=== PATIENT | male | born 1955 | race Caucasian/White ===

== ENCOUNTER 2016-09-23 19:17 | Emergency (ER) | payer BC ==
[~2016-09-23] VITALS: Ht 177.8 cm; Wt 88.5 kg
[2016-09-23 23:06] VITALS: BP 142/86
== END 2016-09-23 23:09 | disposition home or self-care (01) ==
LOC: EME 19:17
DX: S16.1XXA Strain of muscle, fascia and tendon at neck level, initial encounter (principal); M50.10 Cervical disc disorder with radiculopathy, unspecified cervical region; R20.0 Anesthesia of skin; I10 Essential (primary) hypertension
CPT/HCPCS: 99281; 99284; J1885; J2270

== ENCOUNTER 2016-09-27 10:23 | Emergency (ER) | payer BC ==
[~2016-09-27] VITALS: Ht 177.8 cm; Wt 98.4 kg
[2016-09-27] MEDS ORDERED: PERCOCET 5/31 TABLET PO (13:10)
[2016-09-27] MEDS ORDERED: FLEXERIL10 MG PO (13:10)
[2016-09-27] MEDS ORDERED: MOBIC7.5 MG PO (13:10)
[2016-09-27 13:33] VITALS: BP 157/102
== END 2016-09-27 13:34 | disposition home or self-care (01) ==
LOC: EME 10:23
DX: M50.10 Cervical disc disorder with radiculopathy, unspecified cervical region (principal); I10 Essential (primary) hypertension
CPT/HCPCS: 99281; 99284; J1885; J2270

== ENCOUNTER → 2016-10-04 | Outpatient (CLI) | payer BC ==
[~2016-10-04] MED LIST: FLEXERIL10 MG PO; MOBIC7.5 MG PO; PERCOCET 5/31 TABLET PO
== END | disposition home or self-care (01) ==
LOC: CDC 12:35
DX: R00.0 Tachycardia, unspecified (principal); R94.31 Abnormal electrocardiogram [ECG] [EKG]; M47.812 Spondylosis without myelopathy or radiculopathy, cervical region
CPT/HCPCS: 93000